=== PATIENT | male | born 1930 | race Caucasian/White ===

== ENCOUNTER 2018-08-30 09:26 | Outpatient (CLI) | payer MEDICARE, BC ==
[2018-08-30] VITALS (21 sets, daily range): BP systolic 107–134; BP diastolic 64–83
== END 2018-08-30 23:59 | disposition home or self-care (01) ==
LOC: CARD DIAG 09:26
PROVIDERS: ATTEND Internal Medicine Cardiovascular Disease
DX: R55 Syncope and collapse (principal)
CPT/HCPCS: 93660